=== PATIENT | female | born 1960 | race Caucasian/White ===

== ENCOUNTER 2024-06-21 12:13 | Day surgery (SDC) | payer OTHER ==
[2024-06-21] MEDS ORDERED: Depo-Medrol 40 MG/ML IM ONE (12:14)
[2024-06-21] MEDS ORDERED: BUPIVACAINE 0.5% VIAL IJ ONE (12:14)
[2024-06-21] MEDS ORDERED: DIPRIVAN 200 MG/20 ML IV ONE (14:50)
[2024-06-21] MEDS ORDERED: Lactated Ringers 1,000 ML IV ONE (15:13)
--- NOTE | 2024-06-21 16:56 | XRAY ---
Indication: Bilateral SI joint injection. Intraoperative fluoroscopy provided for 22 seconds. 2 digital spot image submitted for interpretation demonstrates posterior needle tips projecting over the expected left and right SI joints. Small amount of contrast injected for both needle tip placement. Correlate with intraoperative findings/report.
--- NOTE | 2024-06-21 17:30 | XRAY ---
22 seconds of fluoroscopy was used in surgery for a bilateral sacroiliac joint injection.
== END 2024-06-21 15:32 | disposition home or self-care (01) ==
LOC: SDC-PAIN 12:13
PROVIDERS: ATTEND Psychiatry & Neurology Pain Medicine
DX: M46.1 Sacroiliitis, not elsewhere classified (principal)
CPT/HCPCS: 01992; 27096; 72202; 77002; G0260; J2704; Q9966